=== PATIENT | male | born 1970 | race Caucasian/White ===

== ENCOUNTER 2021-04-26 12:33 | Emergency (ER) | payer BC ==
[2021-04-26 12:50] VITALS: BP 142/89; PULSE 82
[2021-04-26] MEDS ORDERED: Iopamidol 612 MG/ML 50 ML SDV IVPUSH ONE (13:04)
[2021-04-26] MEDS ORDERED: Iopamidol 612 MG/ML 100 ML Bottle IVPUSH ONE (13:04)
[2021-04-26] MEDS ORDERED: Ketorolac 15 MG/ML SDV IVPUSH ONE (13:11)
--- NOTE | 2021-04-26 14:26 | CT ---
EXAM: CT ABDOMEN PELVIS WITH CONTRAST LOCATION: [facility] DATE/TIME: 04/26/2021 1:24 PM INDICATION: Epigastric pain and left flank pain. COMPARISON: None. TECHNIQUE: CT scan of the abdomen and pelvis was performed following injection of IV contrast. Multiplanar reformats were obtained. Dose reduction techniques were used. CONTRAST: isovue 300 125 FINDINGS: LOWER CHEST: Normal. HEPATOBILIARY: Mild to moderate diffuse hepatic steatosis. Three 1.3 cm or less low-attenuation lesions right hepatic lobe (series 2 images 29, 32 and 37), a 1.3 cm lowattenuation lesion in the medial segment left hepatic lobe (image 23) and a 0.8 cm hypervascular focus in the caudate lobe (image 14) are indeterminate. No bile duct dilatation or calcified gallstones. PANCREAS: Normal. SPLEEN: Normal. ADRENAL GLANDS: Normal. KIDNEYS/BLADDER: Normal. BOWEL: Normal appendix. Prominent diverticulum third duodenal segment. Colonic diverticulosis with no diverticulitis. Moderate amount stool throughout the colon. No bowel obstruction or inflammatory change. LYMPH NODES: Normal. VASCULATURE: Moderate calcified atheromatous plaque throughout the normal caliber abdominal aorta, iliofemoral arteries and at the origin of the renal and mesenteric arteries. PELVIC ORGANS: Small fat-containing right inguinal hernia. MUSCULOSKELETAL: Unremarkable. IMPRESSION: 1. No acute findings in the abdomen or pelvis. 2. Colonic diverticulosis with no diverticulitis. 3. Mild to moderate diffuse hepatic steatosis. 4. Four small low-attenuation lesions in the liver and a 0.8 cm hypervascular focus in the caudate lobe are indeterminate. Recommend comparison with any available outside prior abdominal imaging to assess for stability or performance of MRI liver. 5. Small fat-containing right inguinal hernia. SIGNED BY: Marek Oswald MD 04/26/2021 3:02 PM [facility]
--- NOTE | 2021-04-26 14:45 | EDM.PDOC ---
ED [facility] GENERAL MEDICAL PROBLEM - General Chief Complaint: Abdominal Pain Stated Complaint: SUDDEN ABDOMINAL & BACK PAIN Time Seen by Provider: 04/26/21 13:00 Source of Information: Reports: Patient History Limitations: Reports: No Limitations - History of Present Illness INITIAL COMMENTS - FREE TEXT/NARRATIVE: This 50-year-old male with past medical history of hypothyroidism presenting with a chief complaint of abdominal pain and back pain. Onset was several hours prior to arrival. Patient states he was at rest when symptoms started. He states he was sitting on a couch. Patient reports sharp pain that starts in the epigastric region and radiates to bilateral flanks. Patient states that symptoms are moderate in nature. He did not perform intervention prior to arriv al. He did not have any associated shortness of breath, neck pain, jaw pain, extremity pain. No history of prior similar symptoms. Pain does seem to be worse with movement such as bending over to the left or the right. Improved by sitting still. Upper Abdomen Pain Score (Numeric/FACES): 5 - Related Data Allergies Allergy/AdvReac Type Severity Reaction Status Date / Time No Known Allergies Allergy Verified 04/26/21 12:50 Home Meds: Home Meds Cyclobenzaprine [Flexeril] 10 mg PO BID #20 tab 04/26/21 [Rx] Cyclobenzaprine [Flexeril] 10 mg PO BID #20 tab 04/26/21 [Rx] Levothyroxine [Synthroid] 100 mcg PO DAILY 04/26/21 [History] Past Medical History HEENT History: Reports: Impaired Vision Other HEENT History: right eye removed Cardiovascular History: Reports: Other (See Below) - Past Surgical History HEENT Surgical History: Reports: Eye Surgery Social & Family History - Family History Family Medical History: No Pertinent Family History - Tobacco Use Tobacco Use Status *Q: Current Every Day Tobacco User Years of Tobacco use: 35 Packs/Tins Daily: 4 - Caffeine Use Caffeine Use: Reports: None - Living Situation & Occupation Living situation: Reports: , with Spouse Occupation: Employed ED ROS GENERAL - Review of Systems Review Of Systems: See Below Free Text/Narrative/Comment: In addition to that documented in the HPI above, the additional ROS was obtained: Constitutional: Denies fevers or chills Eyes: Denies vision changes ENMT: Denies sore throat CV: Denies chest pain Resp: Denies SOB GI: Denies vomiting or diarrhea : Denies painful urination MSK: Denies recent trauma Skin: Denies new rashes Neuro: Denies new numbness or tingling or weakness Endocrine: Denies unexpected weight loss Heme: Denies bleeding disorders ED EXAM, GI/ABD - Physical Exam Exam: See Below Text/Narrative:: I have reviewed the triage vital signs Const: Well nourished, well developed, appears stated age Eyes: Pupils Equal and reactive to light bilaterally, no conjunctival injection HENT: No signs of trauma or swelling, Neck supple without meningismus CV: Regular Rate Rhythm, Warm, well-perfused extremities RESP: Unlabored respiratory effort GI: soft, non-tender, non-distended, no masses MSK: Tender to palpation of the left paraspinal muscles around the thoracic area. No gross deformities appreciated Skin: Warm, dry. 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 Sensation and motor function of extremities grossly intact. Psych: Appropriate mood and affect. Course - Vital Signs Last Recorded V/S: Last Vital Signs Temp 36.6 C 04/26/21 12:48 Pulse 82 04/26/21 12:48 Resp 18 04/26/21 12:48 BP 142/89 H 04/26/21 12:48 Pulse Ox 98 04/26/21 12:48 - Orders/Labs/Meds Labs: Laboratory Tests 04/26/21 04/26/21 04/26/21 Range/Units 13:08 13:08 13:08 WBC 9.81 H (4.23-9.07) K/mm3 RBC 4.59 L (4.63-6.08) M/mm3 Hgb 15.5 (13.7-17.5) gm/dl Hct 44.6 (40.1-51.0) % MCV 97.2 H (79.0-92.2) fl MCH 33.8 H (25.7-32.2) pg MCHC 34.8 (32.2-35.5) g/dl RDW Std Deviation 45.4 H (35.1-43.9) fL Plt Count 263 (163-337) K/mm3 MPV 10.3 (9.4-12.3) fl Neut % (Auto) 66.0 (34.0-67.9) % Lymph % (Auto) 25.6 (21.8-53.1) % [place] % (Auto) 6.7 (5.3-12.2) % Eos % (Auto) 1.3 (0.8-7.0) Baso % (Auto) 0.2 (0.1-1.2) % Neut # (Auto) 6.47 H (1.78-5.38) K/mm3 Lymph # (Auto) 2.51 (1.32-3.57) K/mm3 [place] # (Auto) 0.66 (0.30-0.82) K/mm3 Eos # (Auto) 0.13 (0.04-0.54) K/mm3 Baso # (Auto) 0.02 (0.01-0.08) K/mm3 Sodium 141 (136-145) mEq/L Potassium 4.2 (3.5-5.1) mEq/L Chloride 102 (98-107) mEq/L Carbon Dioxide 29 (21-32) mEq/L Anion Gap 14.2 (5-15) BUN 15 (7-18) mg/dL Creatinine 0.9 (0.7-1.3) mg/dL Est Cr Clr Drug Dosing 102.26 mL/min Estimated GFR (MDRD) > 60 (>60) mL/min BUN/Creatinine Ratio 16.7 (14-18) Glucose 107 H (70-99) mg/dL Lactic Acid TNP Calcium 8.9 (8.5-10.1) mg/dL Total Bilirubin 0.3 (0.2-1.0) mg/dL AST 18 (15-37) U/L ALT 45 (16-63) U/L Alkaline Phosphatase 69 (46-116) U/L Total Protein 7.2 (6.4-8.2) g/dl Albumin 3.8 (3.4-5.0) g/dl Globulin 3.4 gm/dL Albumin/Globulin Ratio 1.1 (1-2) Lipase 104 (73-393) U/L Meds: Medications Discontinued Medications Generic Name Dose Route Start Last Admin Trade Name Freq PRN Reason Stop Dose Admin Iopamidol 25 ml 04/26/21 13:04 04/26/21 13:31 Iopamidol 612 Mg/Ml 50 Ml Sdv IVPUSH 04/26/21 13:05 50 ml ONETIME ONE Administration Iopamidol 100 ml 04/26/21 13:04 04/26/21 13:31 Iopamidol 612 Mg/Ml 100 Ml Bottle IVPUSH 04/26/21 13:05 100 ml ONETIME ONE Administration Ketorolac Tromethamine 15 mg 04/26/21 13:11 04/26/21 13:25 Ketorolac 15 Mg/Ml Sdv IVPUSH 04/26/21 13:12 15 mg ONETIME ONE Administration Departure - Departure Time of Disposition: 14:44 Disposition: Home, Self-Care 01 Clinical Impression: Abdominal pain - Discharge Information Prescriptions: Cyclobenzaprine [Flexeril] 10 mg PO BID #20 tab Cyclobenzaprine [Flexeril] 10 mg PO BID #20 tab Instructions: Abdominal Pain, Adult, [id number] Referrals: Anahi Vieyra PA-C [Primary Care Provider] - Forms: ED Department Discharge Sepsis Event Note (ED) - Evaluation Sepsis Screening Result: No Definite Risk - Focused Exam Vital Signs: Vital Signs Temp Pulse Resp BP Pulse Ox 04/26/21 12:48 36.6 C 82 18 142/89 H 98 - Assessment/Plan Assessment:: Patient is 30-year-old male presented to emergency room with abdominal pain and back pain. Symptoms did improve with administration of Toradol in the emergency room. But differential diagnosis considered for this patient include ACS, abdominal aortic aneurysm, aortic dissection, pancreatitis, kidney stone. Laboratory studies and CT did not demonstrate any acute abnormalities. EKG did not show any ischemic changes. At this point, patient has no clear etiology but this may be musculoskeletal in origin. He will be discharged from the emergency room with outpatient follow-up. Return precautions discussed as usual. Patient agrees with plan of care.
== END 2021-04-26 14:55 | disposition home or self-care (01) ==
LOC: JD.ED 12:33
DX: R10.9 Unspecified abdominal pain (principal); E03.9 Hypothyroidism, unspecified; Z79.899 Other long term (current) drug therapy; Z72.0 Tobacco use
CPT/HCPCS: 36415; 74177; 74177-26; 80053; 83690; 85025; 96374; 99284-25; J1885; Q9967